=== PATIENT | female | born 1975 | race Asian ===

== ENCOUNTER → 2018-02-15 13:11 | Outpatient (CLI) | payer OTHER, SELFPAY | PROVIDERS: Family Provider Physician Assistant; PCP Physician Assistant; Visit Provider Physician Assistant | DX: K62.5 Hemorrhage of anus and rectum (principal); R53.83 Other fatigue ==

== ENCOUNTER → 2018-02-15 13:23 | Outpatient (CLI) | payer OTHER, SELFPAY ==
[2018-02-15 14:02] LABS: Hematocrit 39.1 % (36-46); Hemoglobin 13.2 g/dL (12.0-16.0)
[2018-02-15 14:40] LABS: HEMOLYSIS < 15 (0-50); Iron 104 ug/dL (37-170)
[2018-02-15 14:42] LABS: Alanine Aminotransferase 41 IU/L (9-52); Albumin 4.3 g/dL (3.5-5.0); Albumin Globulin Ratio 1.1 (1.0-2.8); Alkaline Phosphatase 81 U/L (38-126); Aspartate Aminotransferase 30 IU/L (14-36); BUN Creatinine Ratio 18.3 (6-22); Bilirubin Total 0.3 mg/dL (0.2-1.3); Blood Urea Nitrogen 11 mg/dL (7-17); Calcium 9.2 mg/dL (8.4-10.2); Carbon Dioxide 26 mmol/L (22-32); Chloride 103 mmol/L (98-107); Cholesterol 214 mg/dL (140-199); Estimated Glomerular Filt Rate > 60.0 mL/min (>60); Globulin 3.8 g/dL (1.7-4.1); Glucose 94 mg/dL (70-100); HDL Cholesterol 57 mg/dL (40-60); HEMOLYSIS < 15 (0-50); LDL Cholesterol Calculated 103 mg/dL (<100); Potassium 4.3 mmol/L (3.4-5.1); Sodium 140 mmol/L (137-145); Total Protein 8.1 g/dL (6.3-8.2); Triglycerides 270 mg/dL (35-150)
[2018-02-15 14:50] LABS: Percent Iron Saturation 30 % (15-50); Total Iron Binding Capacity 349 ug/dL (265-497); Transferrin 275 mg/dL (206-381)
[2018-02-15 15:10] LABS: Thyroid Stimulating Hormone 0.81 uIU/mL (0.47-4.68)
== END ==
PROVIDERS: PCP Physician Assistant; Visit Provider Physician Assistant
DX: Z00.00 Encounter for general adult medical examination without abnormal findings (principal); R53.83 Other fatigue; K62.5 Hemorrhage of anus and rectum
CPT/HCPCS: 36415; 80053; 80061; 82728; 83540; 83550; 84443; 85014; 85018

== ENCOUNTER → 2018-08-23 12:30 | Outpatient (CLI) | payer OTHER, SELFPAY | PROVIDERS: Family Provider Physician Assistant; PCP Physician Assistant; Visit Provider Physician Assistant | DX: R10.2 Pelvic and perineal pain (principal) | CPT/HCPCS: 87086 ==

== ENCOUNTER → 2018-09-20 13:10 | Outpatient (CLI) | payer OTHER, SELFPAY ==
--- NOTE | 2018-09-20 13:12 | DI.MG.S_ITS ---
BILATERAL DIGITAL SCREENING MAMMOGRAM 3D/2D WITH CAD: 09/20/2018 CLINICAL: Routine screening. Comparison is made to exams dated: 07/10/2016 mammogram, 07/19/2013 mammogram, and 08/30/2012 mammogram - [facility]. The tissue of both breasts is heterogeneously dense. This may lower the sensitivity of mammography. Current study was also evaluated with a Computer Aided Detection (CAD) system. No significant masses, calcifications, or other findings are seen in either breast. There has been no significant interval change. IMPRESSION: NEGATIVE There is no mammographic evidence of malignancy. A 1 year screening mammogram is recommended. This exam was interpreted at Station ID: [id number]. NOTE: For mammograms, a report in lay terms will be sent to the patient. Approximately 15% of breast malignancies will not be visualized mammographically. In the management of a palpable breast mass, a negative mammogram must not discourage biopsy of a clinically suspicious lesion. Electronically Signed By: Andrew zafar/yaritza:09/20/2018 17:32:32 letter sent: Normal Exam ACR BI-RADS Category 1: Negative [id number]
== END ==
PROVIDERS: PCP Physician Assistant; Visit Provider Physician Assistant
DX: Z12.31 Encounter for screening mammogram for malignant neoplasm of breast (principal)
CPT/HCPCS: 77063; 77067

== ENCOUNTER → 2019-12-14 10:32 | Outpatient (CLI) | payer OTHER, SELFPAY ==
[2019-12-14 13:14] LABS: Urine N gonorrhoeae NOT DETECTED
[2019-12-14 13:39] LABS: Urine Chlamydia NOT DETECTED
[2019-12-14 14:04] LABS: Pregnancy Test Urine Negative (Negative)
[2019-12-15 07:17] LABS: RPR Screen Non Reactive (Non Reactive)
[2019-12-15 15:27] LABS: HIV 1 & 2 Ab/Ag 4th Gen Combo NEGATIVE (NEGATIVE)
== END ==
PROVIDERS: PCP Nurse Practitioner Family; Referring Provider Nurse Practitioner Family; Visit Provider Nurse Practitioner Family
DX: N89.8 Other specified noninflammatory disorders of vagina (principal); Z20.2 Contact with and (suspected) exposure to infections with a predominantly sexual mode of transmission; B96.89 Other specified bacterial agents as the cause of diseases classified elsewhere; N76.0 Acute vaginitis
CPT/HCPCS: 36415; 81025; 86592; 86696; 87210; 87389; 87491; 87591

== ENCOUNTER → 2020-07-18 07:11 | Outpatient (CLI) | payer OTHER, SELFPAY ==
--- NOTE | 2020-07-18 07:15 | DI.US.S_ITS ---
PROCEDURE: US PELVIC COMPLETE INDICATIONS: Dysmenorrhea and mild dyspareunia TECHNIQUE: Real-time scanning was performed of the pelvic organs, with image documentation. Additional endovaginal scanning was necessary due to incomplete visualization of the adnexal and endometrial structures by transabdominal scanning. COMPARISON: None. FINDINGS: Transabdominal scanning: Limited scanning through the kidneys shows no hydronephrosis. No pathologic free abdominal or pelvic fluid. Endovaginal scanning: Uterus: Uterus is normal in size at 3.6 x 5.2 x 9.3 cm, anteverted. The endometrium measures 5.8 mm in combined thickness. Ovaries: Right ovary measures 2.0 x 2.1 x 2.1 cm and contains a simple cyst measuring 1.5 x 1.4 x 1.8 cm. The left ovary measures 1.9 x 1.2 x 1.4 cm. IMPRESSION: Normal pelvic ultrasound, source of crampy pelvic pain is not seen. Dictated by: John Paul Combs M.D. on 07/18/2020 at 13:42 Approved by: John Paul Combs M.D. on 07/18/2020 at 13:44
== END ==
PROVIDERS: PCP Nurse Practitioner Family; Referring Provider Family Medicine; Visit Provider Family Medicine
DX: N94.6 Dysmenorrhea, unspecified (principal); N94.10 Unspecified dyspareunia; R10.2 Pelvic and perineal pain
CPT/HCPCS: 76830; 76856

== ENCOUNTER → 2020-07-24 16:44 | Outpatient (CLI) | payer OTHER, SELFPAY ==
--- NOTE | 2020-07-24 | DI.MG.S_ITS ---
BILATERAL DIGITAL SCREENING MAMMOGRAM 3D/2D WITH CAD: 07/24/2020 CLINICAL: Routine screening. Comparison is made to exams dated: 09/20/2018 mammogram, 07/10/2016 mammogram, and 07/19/2013 mammogram - [facility]. The tissue of both breasts is heterogeneously dense. This may lower the sensitivity of mammography. Current study was also evaluated with a Computer Aided Detection (CAD) system. No significant masses, calcifications, or other findings are seen in either breast. There has been no significant interval change. IMPRESSION: NEGATIVE There is no mammographic evidence of malignancy. A 1 year screening mammogram is recommended. This exam was interpreted at Station ID: [id number]. NOTE: For mammograms, a report in lay terms will be sent to the patient. Approximately 15% of breast malignancies will not be visualized mammographically. In the management of a palpable breast mass, a negative mammogram must not discourage biopsy of a clinically suspicious lesion. Electronically Signed By: Andrew zafar/yaritza:07/25/2020 07:37:16 letter sent: Normal Exam ACR BI-RADS Category 1: Negative [id number]
--- NOTE | 2020-07-24 16:46 | DI.RAD.S_ITS ---
PROCEDURE: XR LUMBAR SPINE 2-3V INDICATIONS: Progressive lower back and pelvic pain TECHNIQUE: 2 views of the lumbar spine were acquired. COMPARISON: [facility], CT, KIDNEY/ URETER/BLADDER, 06/18/2009, 16:31. [facility], US, US PELVIC COMPLETE, 07/18/2020, 7:22. FINDINGS: Bones: 5 [id number] vertebrae are present. There is normal bony alignment. No vertebral body compression fractures. No suspicious bony lesions. Lower lumbar spine facet arthropathy is seen. The disc heights are well preserved. Soft tissues: Overlying bowel gas pattern is normal. No suspicious soft tissue calcifications. IMPRESSION: No significant lumbar plain film abnormality for age. Dictated by: Jack Evans M.D. on 07/24/2020 at 17:40 Approved by: Jack Evans M.D. on 07/24/2020 at 17:42
== END ==
PROVIDERS: PCP Nurse Practitioner Family; Referring Provider Nurse Practitioner Family; Visit Provider Nurse Practitioner Family
DX: Z12.31 Encounter for screening mammogram for malignant neoplasm of breast (principal); R10.2 Pelvic and perineal pain; M54.5 Low back pain
CPT/HCPCS: 72100; 77063; 77067

== ENCOUNTER → 2021-06-25 15:27 | Outpatient (CLI) | payer OTHER, SELFPAY ==
--- NOTE | 2021-06-25 15:40 | DI.RAD.S_ITS ---
PROCEDURE: XR WRIST LT MIN 3V INDICATIONS: pain TECHNIQUE: 4 views of the wrist were acquired. COMPARISON: None. FINDINGS: Bones: No fractures or dislocations. No suspicious bony lesions. Scaphoid view: Intact Soft tissues: No suspicious soft tissue calcifications. IMPRESSION: No acute abnormality Dictated by: Vinh Winters M.D. on 06/25/2021 at 16:19 Approved by: Vinh Winters M.D. on 06/25/2021 at 16:21
== END ==
PROVIDERS: PCP Nurse Practitioner Family; Referring Provider Nurse Practitioner Family; Visit Provider Nurse Practitioner Family
DX: M25.532 Pain in left wrist (principal)
CPT/HCPCS: 73110

== ENCOUNTER 2021-08-12 14:15 | Outpatient (RCR) | payer OTHER, SELFPAY ==
--- NOTE | 2021-07-18 17:38 | PT.OIE ---
Current Diagnoses Pain in left wrist (07/18/21) Stiffness of left hand, not elsewhere classified (07/18/21) Muscle weakness (generalized) (07/18/21) Other enthesopathies, not elsewhere classified (07/18/21) Past Medical History (Last Reviewed 07/24/20 @ 16:44 by Alden Dailey DO) Dysmenorrhea Generalized headaches (Unknown) Hemorrhoids Mixed hyperlipidemia Pain in pelvis Vaginal lesion Past Surgical History (Last Updated 02/22/18 @ 14:09 by Barbara Payne LPN) Status post breast biopsy (2012) Status post delivery (1999) Visit Care Team Role Provider Type KEAGAN Kennedy Family Provider Advanced Refining Supervisor Primary Care Provider Specialty: [facility] Practice Address: [address] [place] [address], [id number] Email: [email or web address] Alden Dailey DO Attending Provider Physician Referring Provider Specialty: [facility] Address: [address] [place] [address], [id number] Email: [email or web address] Physical Therapy Initial Evaluation PT-OP-A Visit Information Start: 07/18/21 10:34 Freq: Status: Active Protocol: Document 07/18/21 10:36 LRN (Rec: 07/18/21 12:30 LRN [id number]) Out-Patient Physical Therapy Visit Information Visit Information Visit Type Initial Evaluation Visit Start Time 10:36 Visit Stop Time 11:21 Total Visit Minutes 44 Visit Number 1 Evaluation Information Evaluation Date 07/18/21 Precautions Precautions None PT-OP-B Current Condition Start: 07/18/21 10:34 Freq: Status: Active Protocol: Document 07/18/21 10:36 LRN (Rec: 07/18/21 12:30 LRN [id number]) Current Condition History of Current Condition Onset Date 2 months ago. Current Complaints Pain at distal end of radius of L wrist. History of Current Condition Lifting 10-25# weight repetitive lifting basket caused onset of pain. Prior Treatments and Tests X-ray (3 weeks ago): was told no bone broken and was given Naproxen. Given wrist splint by referring provider. 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 After spending 4 months on the boat now has L wrist pain. September is the next time the boat goes out. Pt is R handed. Treatment Goals Patient/Caregiver Goals Pt goal is to return to prior level of function. 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 Current Functional Impairments (Reported) Functional Limitations- ADL's Difficulty carrying and lifting garbage bags (or objects 10-25#), chopping onions, putting shirts or pants on or off. Personal Factors Other Personal Factors That May Effect Lives alone. Therapy/Recovery Next job on boat is Sep 16, 2021. PT-OP-C Subjective Start: 07/18/21 10:34 Freq: Status: Active Protocol: Document 07/18/21 10:36 LRN (Rec: 07/18/21 12:30 LRN [id number]) Patient Questionnaires Quick Dash- Upper Extremity Quick Dash UE Score 40.99 Quick Dash UE Impairment 40 to 59% Impaired (Score 40- 59) OP-PT Pain Assessment Pain Assessment Grid Paper Pain Assessment Grid Completed Yes Location L wrist Pain Location Details L lateral wrist at distal radius Intensity 6 Scale Used Numeric (0 - 10) Description Burning,Pressure Description- Other Holding phone 15', sleeping on L hand (palm down) Frequency Constant Pain Aggravating Factors Lifting Other Pain Aggravating Factors Holding phone, sleeping on hand. Pain Alleviating Factors Cold,Medication,Massage Other Pain Alleviating Factors Naproxen. PT-OP-H Neuro Start: 07/18/21 10:34 Freq: Status: Active Protocol: Document 07/18/21 10:36 LRN (Rec: 07/18/21 12:30 LRN [id number]) Sensation Evaluation Gross Sensation Gross Sensation Left UE Impaired Sensation Description Coldness PT-OP-K Range of Motion Start: 07/18/21 10:34 Freq: Status: Active Protocol: Document 07/18/21 10:36 LRN (Rec: 07/18/21 12:30 LRN [id number]) Elbow/Forearm Range of Motion Elbow/Forearm Right Active Elbow/Forearm ROM WFL Yes ROM Testing Position Sitting Left Active Elbow/Forearm ROM WFL Yes ROM Testing Position Sitting Wrist Goniometric Range of Motion Wrist Right Wrist ROM WFL Yes Flexion Active (degrees) 78 Extension Active (degrees) 58 Ulnar Deviation Active (degrees) 32 Radial Deviation Active (degrees) 20 Left Wrist ROM WFL No Flexion Active (degrees) 78 Extension Active (degrees) 40 Ulnar Deviation Active (degrees) 10 Radial Deviation Active (degrees) 22 PT-OP-L Special Tests Start: 07/18/21 10:34 Freq: Status: Active Protocol: Document 07/18/21 10:36 LRN (Rec: 07/18/21 12:30 LRN [id number]) Special Tests Cervical Spine Special Tests Foraminal Compression Test Results negative Comments No UE radiculopathy Wrist/Hand Special Tests Lance's Test Results + L wrist Comments Possible DeQuervin's Syndrome. PT-OP-M Strength Start: 07/18/21 10:34 Freq: Status: Active Protocol: Document 07/18/21 10:36 LRN (Rec: 07/18/21 12:30 LRN [id number]) Elbow/Forearm Strength Elbow and Forearm Manual Muscle Testing Right Comments Generally 5/5 Left Flexion (C6) 5 Normal Extension (C7) 4+ Good+ Pronation 4+ Good+ Supination 5 Normal Comments L lateral wrist pain with resisted elbow extension, pronation Wrist Strength Wrist Manual Muscle Testing Right Flexion (C7) 4+ Good+ Comments Generally 5/5, except as noted above. Left Flexion (C7) 3+ Fair+ Extension (C6) 5 Normal Ulnar Deviation 2 Poor Radial Deviation 3 Fair Comments Strength limited by pain Finger/Thumb Strength Finger Manual Muscle Testing Left Thumb Flexion (fingers C8) 5 Normal Extension (thumb C8) 3+ Fair+ Adduction 5 Normal Abduction (fingers T1) 5 Normal Comments Opposition is 5/5 Limited in not able to touch base of little finger. PT-OP-Q Treatments Start: 07/18/21 10:34 Freq: Status: Active Protocol: Document 07/18/21 10:36 LRN (Rec: 07/18/21 12:30 LRN [id number]) Self-Care/Home Management Treatment Education Patient Education Pain Management Other Education Pt educated in reults of evaluation. Discussed goals and plan of care, pt agreeable . Activities Self-Care/Home Management Activities I/S pt to use wrist splint when doing activities that cause pain. Recommended trying to wear at nighttime to reduce onset of pain at night . I/S pt in use of ice for edema/pain management with precautions given for time, and proper application of cold pack to area. PT-OP-T Assessment and Plan Start: 07/18/21 10:34 Freq: Status: Active Protocol: Document 07/18/21 10:36 LRN (Rec: 07/18/21 12:30 LRN [id number]) Physical Therapy Assessment Rehab Potential Rehabilitation Potential Good Evaluation Complexity Number of Personal Factors/Comorbidities 1-2 Number of Body Systems Impaired 4 or More Clinical Presentation at Evaluation Evolving Impairments Impairments Activity Tolerance,Edema,Pain, ROM,Soft Tissue Mobility, Strength Goals Three Impairment Constant L wrist pain rated 6/ 10 Short Term Goal (STG) Decrease L wrist pain to no more than 3/10 in 4 weeks. With light objects, pt will be able to carry amd lift without pain and chop onions without pain. STG Duration 08/17/21 Architecture Professor Goal (LTG) No wrist pain with daily activities and no pain with use of wrist splint for activities of lifting, carrying groceries or garbage bags up to 25# and put on her shirts and pants without pain. LTG Duration 09/16/21 Two Impairment Decreased L wrist mobility Short Term Goal (STG) Pt will be independent on a self care L wrist mobility exercise program. STG Duration 07/25/21 Architecture Professor Goal (LTG) Pt will demonstrate normal L wrist AROM without onset of pain. LTG Duration 09/16/21 One Impairment Lacks appropriate self care HEP Short Term Goal (STG) Pt will demonstrate good knowledge of self care edema management and use of L wrist splint. STG Duration 08/17/21 Architecture Professor Goal (LTG) Pt will be independent in a self care HEP. LTG Duration 09/24/21 Assessment Summary Assessment Pt presents with tenderness of the L wrist at the distal radial end. X-rays show no fractures of the wrist. The pt has + Lance test indicating possible DeQuervin' s syndrome. She is negative with [facility] grind Test indicating no arthritic involvement. She does have pain at the anatomic snuffbox and she does have tenderness with posterior-anterior and anterior-posterior glide of Scaphoid, indicating dysfunction (possible fracture ). The pt has generalized swelling at the distal radial end of the wrist and between the radius and ulna distally. The pt would benefit from further imaging of the L wrist small bones. The pt will benefit from skilled physical therapy for continued further assessment and ROM, pain/edema reduction and pt education in self care of the wrist, in order to achieve the above stated goals. Physical Therapy Plan Frequency and Duration Frequency of Treatment 2x/Week Plan of Care Start Date 07/18/21 Plan of Care End Date 09/16/21 Therapeutic Interventions Therapeutic Interventions Home Exercise Program,Joint Mobilizations,Manual Therapy, Patient/Caregiver Education, Self-Care/Home Management,Soft Tissue Mobilization,Taping, Therapeutic Exercises Modalities Cold Pack/Ice Massage,Hot Packs,Iontophoresis,Paraffin Bath,Ultrasound Other Therapeutic Interventions Iontophoresis: 4mg/mL Dexamethasone with Sodium Phosphate. Contrast baths Laser Other Referrals/Consults Referrals/Consults Recommended If pt does not improve, would MRI of small bones for possible Scaphoid fracture. Next Visit Focus/Plan Next Note Type Treatment Note Next Visit Plan Assess response to use of wrist splint and ice. Issue I /S for edema management ( include cp, contrast baths). Assess Sup/Pron AROM, check sup/justina coordination, Scaphoid assessment(Gottlieb's Test, Scaphoid Thrust Test) assessment of Lynne's Tubercle. STM of L wrist extensors> flexors, Manual: Wrist distraction, PROM L wrist, thumb. K-tape for edema, support HEP: L wrist PROM for (ext, UD), thumb opposition to little finger, When appropriate, wrist/thumb strengthening Modalities: US with small head for snuff box tendons and thumb extensors, iontophoresis , laser, paraffin dip, hot/ cold.
--- NOTE | 2021-07-18 17:38 | PT.OPPOC ---
Physical, Occupational & Speech Therapy At [facility] Current Diagnoses Pain in left wrist (07/18/21) Stiffness of left hand, not elsewhere classified (07/18/21) Muscle weakness (generalized) (07/18/21) Other enthesopathies, not elsewhere classified (07/18/21) Visit Care Team Role Provider Type KEAGAN Kennedy Family Provider Advanced Repairer Wood Furniture Primary Care Provider Specialty: Family Practice Address: [address] [place] [address], [id number] Email: [email or web address] Alden Dailey DO Attending Provider Physician Referring Provider Specialty: [facility] Address: [address] [place] [address], [address] Email: [email or web address] Plan Of Care PT-OP-T Assessment and Plan Start: 07/18/21 10:34 Freq: Status: Active Protocol: Document 07/18/21 10:36 LRN (Rec: 07/18/21 12:30 LRN [id number]) Physical Therapy Assessment Rehab Potential Rehabilitation Potential Good Evaluation Complexity Number of Personal Factors/Comorbidities 1-2 Number of Body Systems Impaired 4 or More Clinical Presentation at Evaluation Evolving Impairments Impairments Activity Tolerance,Edema,Pain, ROM,Soft Tissue Mobility, Strength Goals Three Impairment Constant L wrist pain rated 6/ 10 Short Term Goal (STG) Decrease L wrist pain to no more than 3/10 in 4 weeks. With light objects, pt will be able to carry amd lift without pain and chop onions without pain. STG Duration 08/17/21 Correction Goal (LTG) No wrist pain with daily activities and no pain with use of wrist splint for activities of lifting, carrying groceries or garbage bags up to 25# and put on her shirts and pants without pain. LTG Duration 09/16/21 Two Impairment Decreased L wrist mobility Short Term Goal (STG) Pt will be independent on a self care L wrist mobility exercise program. STG Duration 07/25/21 Correction Goal (LTG) Pt will demonstrate normal L wrist AROM without onset of pain. LTG Duration 09/16/21 One Impairment Lacks appropriate self care HEP Short Term Goal (STG) Pt will demonstrate good knowledge of self care edema management and use of L wrist splint. STG Duration 08/17/21 Chief Scientist Goal (LTG) Pt will be independent in a self care HEP. LTG Duration 09/24/21 Assessment Summary Assessment Pt presents with tenderness of the L wrist at the distal radial end. X-rays show no fractures of the wrist. The pt has + Lance test indicating possible DeQuervin' s syndrome. She is negative with [facility] grind Test indicating no arthritic involvement. She does have pain at the anatomic snuffbox and she does have tenderness with posterior-anterior and anterior-posterior glide of Scaphoid, indicating dysfunction (possible fracture ). The pt has generalized swelling at the distal radial end of the wrist and between the radius and ulna distally. The pt would benefit from further imaging of the L wrist small bones. The pt will benefit from skilled physical therapy for continued further assessment and ROM, pain/edema reduction and pt education in self care of the wrist, in order to achieve the above stated goals. Physical Therapy Plan Frequency and Duration Frequency of Treatment 2x/Week Plan of Care Start Date 07/18/21 Plan of Care End Date 09/16/21 Therapeutic Interventions Therapeutic Interventions Home Exercise Program,Joint Mobilizations,Manual Therapy, Patient/Caregiver Education, Self-Care/Home Management,Soft Tissue Mobilization,Taping, Therapeutic Exercises Modalities Cold Pack/Ice Massage,Hot Packs,Iontophoresis,Paraffin Bath,Ultrasound Other Therapeutic Interventions Iontophoresis: 4mg/mL Dexamethasone with Sodium Phosphate. Contrast baths Laser Other Referrals/Consults Referrals/Consults Recommended If pt does not improve, would MRI of small bones for possible Scaphoid fracture. Next Visit Focus/Plan Next Note Type Treatment Note Next Visit Plan Assess response to use of wrist splint and ice. Issue I /S for edema management ( include cp, contrast baths). Assess Sup/Pron AROM, check sup/justina coordination, Scaphoid assessment(Gottlieb's Test, Scaphoid Thrust Test) assessment of Lynne's Tubercle. STM of L wrist extensors> flexors, Manual: Wrist distraction, PROM L wrist, thumb. K-tape for edema, support HEP: L wrist PROM for (ext, UD), thumb opposition to little finger, When appropriate, wrist/thumb strengthening Modalities: US with small head for snuff box tendons and thumb extensors, iontophoresis , laser, paraffin dip, hot/ cold. Plan of Care Dates Plan of Care Start Date 07/18/21 Plan of Care End Date 09/16/21 Electronically Signed by: Anitha Vasquez, PT 07/18/21 [id number] Please Sign and Return: I have reviewed this Plan of Care and certify that the skilled therapy services above are required to meet the patient?s needs. Physician Signature Date Printed Name and Credentials Clinical Instructor Signature Printed Name and Credentials
--- NOTE | 2021-07-23 14:45 | PT.OTN ---
Current Diagnoses Pain in left wrist (07/23/21) Stiffness of left hand, not elsewhere classified (07/23/21) Muscle weakness (generalized) (07/23/21) Other enthesopathies, not elsewhere classified (07/23/21) Physical Therapy Treatment Note PT-OP-A Visit Information Start: 07/18/21 10:34 Freq: Status: Active Protocol: Document 07/23/21 13:35 LRN (Rec: 07/23/21 14:44 LRN [id number]) Out-Patient Physical Therapy Visit Information Visit Information Visit Type Treatment Note Visit Start Time 13:35 Visit Stop Time 14:20 Total Visit Minutes 45 Visit Number 2 Evaluation Information Evaluation Date 07/18/21 Precautions Precautions None PT-OP-B Current Condition Start: 07/18/21 10:34 Freq: Status: Active Protocol: Document 07/18/21 10:36 LRN (Rec: 07/18/21 12:30 LRN [id number]) Current Condition History of Current Condition Onset Date 2 months ago. Current Complaints Pain at distal end of radius of L wrist. History of Current Condition Lifting 10-25# weight repetitive lifting basket caused onset of pain. Prior Treatments and Tests X-ray (3 weeks ago): was told no bone broken and was given Naproxen. Given wrist splint by referring provider. 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 After spending 4 months on the boat now has L wrist pain. September is the next time the boat goes out. Pt is R handed. Treatment Goals Patient/Caregiver Goals Pt goal is to return to prior level of function. 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 Current Functional Impairments (Reported) Functional Limitations- ADL's Difficulty carrying and lifting garbage bags (or objects 10-25#), chopping onions, putting shirts or pants on or off. Personal Factors Other Personal Factors That May Effect Lives alone. Therapy/Recovery Next job on boat is Sep 16, 2021. PT-OP-C Subjective Start: 07/18/21 10:34 Freq: Status: Active Protocol: Document 07/23/21 13:35 LRN (Rec: 07/23/21 14:44 LRN [id number]) OP-PT Subjective Patient Comments Patient Comments Didn't sleep well because the L wrist hurt so much. Stretches helped to decreased the pain. Pain increase with holding phone w/L hand and driving. PT-OP-H Neuro Start: 07/18/21 10:34 Freq: Status: Active Protocol: Document 07/18/21 10:36 LRN (Rec: 07/18/21 12:30 LRN [id number]) Sensation Evaluation Gross Sensation Gross Sensation Left UE Impaired Sensation Description Coldness PT-OP-J Posture/Palpation/Skin Start: 07/18/21 10:34 Freq: Status: Active Protocol: Document 07/23/21 13:35 LRN (Rec: 07/23/21 14:44 LRN [id number]) Palpation Assessment Location L Small bones Palpation Location Small bones of wrist Palpation Details No tenderness with PA or AP glides. PT-OP-K Range of Motion Start: 07/18/21 10:34 Freq: Status: Active Protocol: Document 07/18/21 10:36 LRN (Rec: 07/18/21 12:30 LRN [id number]) Elbow/Forearm Range of Motion Elbow/Forearm Right Active Elbow/Forearm ROM WFL Yes ROM Testing Position Sitting Left Active Elbow/Forearm ROM WFL Yes ROM Testing Position Sitting Wrist Goniometric Range of Motion Wrist Right Wrist ROM WFL Yes Flexion Active (degrees) 78 Extension Active (degrees) 58 Ulnar Deviation Active (degrees) 32 Radial Deviation Active (degrees) 20 Left Wrist ROM WFL No Flexion Active (degrees) 78 Extension Active (degrees) 40 Ulnar Deviation Active (degrees) 10 Radial Deviation Active (degrees) 22 PT-OP-L Special Tests Start: 07/18/21 10:34 Freq: Status: Active Protocol: Document 07/23/21 13:35 LRN (Rec: 07/23/21 14:44 LRN [id number]) Special Tests Wrist/Hand Special Tests Scaphoid Thrust Test Test Results L wrist: Negative Comments No pain; therefore neg for scaphoid fracture. Gottlieb's Test Test Results L wrist: Negative. Comments No pain in wrist with testing; therefore negative for scaphoid involvement. PT-OP-M Strength Start: 07/18/21 10:34 Freq: Status: Active Protocol: Document 07/18/21 10:36 LRN (Rec: 07/18/21 12:30 LRN [id number]) Elbow/Forearm Strength Elbow and Forearm Manual Muscle Testing Right Comments Generally 5/5 Left Flexion (C6) 5 Normal Extension (C7) 4+ Good+ Pronation 4+ Good+ Supination 5 Normal Comments L lateral wrist pain with resisted elbow extension, pronation Wrist Strength Wrist Manual Muscle Testing Right Flexion (C7) 4+ Good+ Comments Generally 5/5, except as noted above. Left Flexion (C7) 3+ Fair+ Extension (C6) 5 Normal Ulnar Deviation 2 Poor Radial Deviation 3 Fair Comments Strength limited by pain Finger/Thumb Strength Finger Manual Muscle Testing Left Thumb Flexion (fingers C8) 5 Normal Extension (thumb C8) 3+ Fair+ Adduction 5 Normal Abduction (fingers T1) 5 Normal Comments Opposition is 5/5 Limited in not able to touch base of little finger. PT-OP-Q Treatments Start: 07/18/21 10:34 Freq: Status: Active Protocol: Document 07/23/21 13:35 LRN (Rec: 07/23/21 14:44 LRN [id number]) Therapeutic Exercises Supine Exercises L wrist UD Supine Exercise Name L wrist stretch into UD Side left Reps/Minutes 4' Thumb ext/wrist RD Supine Exercise Name Active stretch to thumb extensor/wrist RD Side left Reps/Minutes 8' L wrist flexor stretch Supine Exercise Name Passive stretch to wrist flexors Side left Reps/Minutes 4' Manual Therapy Treatment Soft Tissue Mobilization L wrist Flexors Body Location L wrist flexors Mobilization Type Cross-Friction,Strumming Intensity/Depth Moderate Body Position Supine Joint Mobilizations Scaphoid Joint PA, AP, Gottlieb's Test & Scaphoid Thrust Test, see special tests for results Body Position Supine Reps/Duration 3' Self-Care/Home Management Treatment Education Patient Education Pain Management Other Education Discussed possible transfer of therapy to a location closer to her living situation ( [place]). Pt agreeable to check into PT location in [place] due to L wrist pain with driving. Activities Self-Care/Home Management Activities Issued & reviewed self care edema management handouts for RICE and contrast bath self care treatments. I/S pt in stretching of L wrist flexors and thumb extensors. Pt I/S to discontinue holding her phone with her left hand due to increased pain with phone use. PT-OP-T Assessment and Plan Start: 07/18/21 10:34 Freq: Status: Active Protocol: Document 07/23/21 13:35 LRN (Rec: 07/23/21 14:44 LRN [id number]) Physical Therapy Assessment Goals Three Impairment Constant L wrist pain rated 6/ 10 Short Term Goal (STG) Decrease L wrist pain to no more than 3/10 in 4 weeks. With light objects, pt will be able to carry amd lift without pain and chop onions without pain. STG Duration 08/17/21 Attic Fans Mechanic Goal (LTG) No wrist pain with daily activities and no pain with use of wrist splint for activities of lifting, carrying groceries or garbage bags up to 25# and put on her shirts and pants without pain. LTG Duration 09/16/21 Two Impairment Decreased L wrist mobility Short Term Goal (STG) Pt will be independent on a self care L wrist mobility exercise program. STG Duration 07/25/21 Senior Care Goal (LTG) Pt will demonstrate normal L wrist AROM without onset of pain. LTG Duration 09/16/21 One Impairment Lacks appropriate self care HEP Short Term Goal (STG) Pt will demonstrate good knowledge of self care edema management and use of L wrist splint. STG Duration 08/17/21 Senior Care Goal (LTG) Pt will be independent in a self care HEP. LTG Duration 09/24/21 Assessment Summary Assessment With use of Ice and L wrist splint at night, the pt had some reduction in her radial sided L wrist pain. Pt appeared to have a good understanding of methods for edema management after education (contrast baths and RICE treatment). She is able to stretch her L thumb extensor with active opposition to base of little finger; therefore held stretching in [place]in test position. Gottlieb's Test & Scaphoid Thrust Test was negative with no complaints of pain; therefore negative for Scaphoid fracture. Physical Therapy Plan Frequency and Duration Frequency of Treatment 2x/Week Plan of Care Start Date 07/18/21 Plan of Care End Date 09/16/21 Next Visit Focus/Plan Next Note Type Treatment Note Next Visit Plan Assess response to US with small head to snuff box tendons and thumb extensors, Assess Sup/Pron AROM, check sup/justina coordination, assessment of Lynne's Tubercle. STM of L wrist extensors> flexors, Manual: Wrist distraction, PROM L wrist, thumb. K-tape for edema, support HEP: L wrist PROM for (ext, UD), thumb opposition to little finger, When appropriate, wrist/thumb strengthening iontophoresis, laser, paraffin dip, hot/cold.
--- NOTE | 2021-07-26 15:55 | PT.OTN ---
Current Diagnoses Pain in left wrist (07/26/21) Stiffness of left hand, not elsewhere classified (07/26/21) Muscle weakness (generalized) (07/26/21) Other enthesopathies, not elsewhere classified (07/26/21) Physical Therapy Treatment Note PT-OP-A Visit Information Start: 07/18/21 10:34 Freq: Status: Active Protocol: Document 07/26/21 13:42 LRN (Rec: 07/26/21 15:50 LRN [id number]) Out-Patient Physical Therapy Visit Information Visit Information Visit Type Treatment Note Visit Start Time 13:42 Visit Stop Time 14:22 Total Visit Minutes 40 Visit Number 3 Evaluation Information Evaluation Date 07/18/21 Precautions Precautions None PT-OP-B Current Condition Start: 07/18/21 10:34 Freq: Status: Active Protocol: Document 07/18/21 10:36 LRN (Rec: 07/18/21 12:30 LRN [id number]) Current Condition History of Current Condition Onset Date 2 months ago. Current Complaints Pain at distal end of radius of L wrist. History of Current Condition Lifting 10-25# weight repetitive lifting basket caused onset of pain. Prior Treatments and Tests X-ray (3 weeks ago): was told no bone broken and was given Naproxen. Given wrist splint by referring provider. 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 September is the next time the boat goes out. Pt is R handed. Treatment Goals Patient/Caregiver Goals Pt goal is to return to prior level of function. 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 Current Functional Impairments (Reported) Functional Limitations- ADL's Difficulty carrying and lifting garbage bags (or objects 10-25#), chopping onions, putting shirts or pants on or off. Personal Factors Other Personal Factors That May Effect Lives alone. Therapy/Recovery Next job on boat is Sep 16, 2021. PT-OP-C Subjective Start: 07/18/21 10:34 Freq: Status: Active Protocol: Document 07/26/21 13:42 LRN (Rec: 07/26/21 15:50 LRN [id number]) OP-PT Subjective Patient Comments Patient Comments Did the hot/cold and it was a little helpful for a couple hours. US provided some pain relief in the L lateral wrist, until next day. PT-OP-H Neuro Start: 07/18/21 10:34 Freq: Status: Active Protocol: Document 07/18/21 10:36 LRN (Rec: 07/18/21 12:30 LRN [id number]) Sensation Evaluation Gross Sensation Gross Sensation Left UE Impaired Sensation Description Coldness PT-OP-J Posture/Palpation/Skin Start: 07/18/21 10:34 Freq: Status: Active Protocol: Document 07/23/21 13:35 LRN (Rec: 07/23/21 14:44 LRN [id number]) Palpation Assessment Location L Small bones Palpation Location Small bones of wrist Palpation Details No tenderness with PA or AP glides. PT-OP-K Range of Motion Start: 07/18/21 10:34 Freq: Status: Active Protocol: Document 07/18/21 10:36 LRN (Rec: 07/18/21 12:30 LRN [id number]) Elbow/Forearm Range of Motion Elbow/Forearm Right Active Elbow/Forearm ROM WFL Yes ROM Testing Position Sitting Left Active Elbow/Forearm ROM WFL Yes ROM Testing Position Sitting Wrist Goniometric Range of Motion Wrist Right Wrist ROM WFL Yes Flexion Active (degrees) 78 Extension Active (degrees) 58 Ulnar Deviation Active (degrees) 32 Radial Deviation Active (degrees) 20 Left Wrist ROM WFL No Flexion Active (degrees) 78 Extension Active (degrees) 40 Ulnar Deviation Active (degrees) 10 Radial Deviation Active (degrees) 22 PT-OP-L Special Tests Start: 07/18/21 10:34 Freq: Status: Active Protocol: Document 07/23/21 13:35 LRN (Rec: 07/23/21 14:44 LRN [id number]) Special Tests Wrist/Hand Special Tests Scaphoid Thrust Test Test Results L wrist: Negative Comments No pain; therefore neg for scaphoid fracture. Gottlieb's Test Test Results L wrist: Negative. Comments No pain in wrist with testing; therefore negative for scaphoid involvement. PT-OP-M Strength Start: 07/18/21 10:34 Freq: Status: Active Protocol: Document 07/18/21 10:36 LRN (Rec: 07/18/21 12:30 LRN [id number]) Elbow/Forearm Strength Elbow and Forearm Manual Muscle Testing Right Comments Generally 5/5 Left Flexion (C6) 5 Normal Extension (C7) 4+ Good+ Pronation 4+ Good+ Supination 5 Normal Comments L lateral wrist pain with resisted elbow extension, pronation Wrist Strength Wrist Manual Muscle Testing Right Flexion (C7) 4+ Good+ Comments Generally 5/5, except as noted above. Left Flexion (C7) 3+ Fair+ Extension (C6) 5 Normal Ulnar Deviation 2 Poor Radial Deviation 3 Fair Comments Strength limited by pain Finger/Thumb Strength Finger Manual Muscle Testing Left Thumb Flexion (fingers C8) 5 Normal Extension (thumb C8) 3+ Fair+ Adduction 5 Normal Abduction (fingers T1) 5 Normal Comments Opposition is 5/5 Limited in not able to touch base of little finger. PT-OP-Q Treatments Start: 07/18/21 10:34 Freq: Status: Active Protocol: Document 07/26/21 13:42 LRN (Rec: 07/26/21 15:50 LRN [id number]) Therapeutic Exercises Sitting Exercises L wrist ext Sitting Exercise Name Stretch into wrist ext Side left Reps/Minutes 3' Thumb opposition stretch Side left Equipment Used Reps/Minutes 3' Thumb flex stretch Side left Equipment Used MH Reps/Minutes 3' L wrist supination Sitting Exercise Name L wrist sup stretch & active stretch Side left Equipment Used Reps/Minutes 8' Comments cuing for gentle stretch, and movement of fingers in sup stretch position. Manual Therapy Treatment Soft Tissue Mobilization L wrist AB/extensor Body Location L thumb AB/ext muscles Mobilization Type Strumming Intensity/Depth Moderate Body Position Sitting PT-OP-R Modalities Start: 07/26/21 12:36 Freq: Status: Active Protocol: Document 07/26/21 13:42 LRN (Rec: 07/26/21 15:54 LRN [id number]) Hot Pack/Cold Pack Treatment Cold Pack Location L radial side of wrist Patient Position Sitting Treatment Duration (minutes) 1 Patient Tolerance Poor Comments Discontinued due to increased pain. Ultrasound Therapy Treatment L thumb AB tendon Treatment Duration (minutes) 2 Patient Position Sitting Coupling Medium Ultrasound Gel Applicator Size (cm2) 2 Frequency Setting (mHz) 3 Mode Setting Pulsed Duty Cycle 50% Intensity Setting (w/cm2) 0.6 Comments Started intensity at 1.0 and decreased to 0.6. Pt had complaints of pain and heat with use of US; therefore discontinued. PT-OP-T Assessment and Plan Start: 07/18/21 10:34 Freq: Status: Active Protocol: Document 07/26/21 13:42 LRN (Rec: 07/26/21 15:50 LRN [id number]) Physical Therapy Assessment Goals Three Impairment Constant L wrist pain rated 6/ 10 Short Term Goal (STG) Decrease L wrist pain to no more than 3/10 in 4 weeks. With light objects, pt will be able to carry amd lift without pain and chop onions without pain. STG Duration 08/17/21 Snf Goal (LTG) No wrist pain with daily activities and no pain with use of wrist splint for activities of lifting, carrying groceries or garbage bags up to 25# and put on her shirts and pants without pain. LTG Duration 09/16/21 Two Impairment Decreased L wrist mobility Short Term Goal (STG) Pt will be independent on a self care L wrist mobility exercise program. STG Duration 07/25/21 Snf Goal (LTG) Pt will demonstrate normal L wrist AROM without onset of pain. LTG Duration 09/16/21 One Impairment Lacks appropriate self care HEP Short Term Goal (STG) Pt will demonstrate good knowledge of self care edema management and use of L wrist splint. STG Duration 08/17/21 Salt Refiner Goal (LTG) Pt will be independent in a self care HEP. LTG Duration 09/24/21 Assessment Summary Assessment Active supine L wrist is painful at lateral wrist ( snuff box). No pain at Lynne 's Tubercle. Pt presents with + Lance. L thumb AB pain > extension. Poor tolerance to ice & c/o heat with US; therefore discontinued US. Physical Therapy Plan Frequency and Duration Frequency of Treatment 2x/Week Plan of Care Start Date 07/18/21 Plan of Care End Date 09/16/21 Next Visit Focus/Plan Next Note Type Treatment Note Next Visit Plan STM of L wrist extensors> flexors, Manual: Wrist distraction, PROM L wrist, thumb. K-tape for edema, support HEP: L wrist PROM for (ext, UD), thumb opposition to little finger, When appropriate, wrist/thumb strengthening iontophoresis, laser, paraffin dip, hot/cold.
--- NOTE | 2021-08-08 15:33 | PT.OTN ---
Current Diagnoses Pain in left wrist (08/08/21) Stiffness of left hand, not elsewhere classified (08/08/21) Muscle weakness (generalized) (08/08/21) Other enthesopathies, not elsewhere classified (08/08/21) Physical Therapy Treatment Note PT-OP-A Visit Information Start: 07/18/21 10:34 Freq: Status: Active Protocol: Document 08/08/21 14:29 LRN (Rec: 08/08/21 15:31 LRN [id number]) Out-Patient Physical Therapy Visit Information Visit Information Visit Type Treatment Note Visit Start Time 14:29 Visit Stop Time 15:10 Total Visit Minutes 41 Visit Number 4 Evaluation Information Evaluation Date 07/18/21 Precautions Precautions None PT-OP-B Current Condition Start: 07/18/21 10:34 Freq: Status: Active Protocol: Document 07/18/21 10:36 LRN (Rec: 07/18/21 12:30 LRN [id number]) Current Condition History of Current Condition Onset Date 2 months ago. Current Complaints Pain at distal end of radius of L wrist. History of Current Condition Lifting 10-25# weight repetitive lifting basket caused onset of pain. Prior Treatments and Tests X-ray (3 weeks ago): was told no bone broken and was given Naproxen. Given wrist splint by referring provider. 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 After spending 4 months on the boat now has L wrist pain. September is the next time the boat goes out. Pt is R handed. Treatment Goals Patient/Caregiver Goals Pt goal is to return to prior level of function. 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 Current Functional Impairments (Reported) Functional Limitations- ADL's Difficulty carrying and lifting garbage bags (or objects 10-25#), chopping onions, putting shirts or pants on or off. Personal Factors Other Personal Factors That May Effect Lives alone. Therapy/Recovery Next job on boat is Sep 16, 2021. PT-OP-C Subjective Start: 07/18/21 10:34 Freq: Status: Active Protocol: Document 08/08/21 14:29 LRN (Rec: 08/08/21 15:31 LRN [id number]) OP-PT Subjective Patient Comments Patient Comments Sometimes her L wrist is normal. Can scratch her back without pain. Can lift a little luggage before it starts to hurt. PT-OP-H Neuro Start: 07/18/21 10:34 Freq: Status: Active Protocol: Document 07/18/21 10:36 LRN (Rec: 07/18/21 12:30 LRN [id number]) Sensation Evaluation Gross Sensation Gross Sensation Left UE Impaired Sensation Description Coldness PT-OP-J Posture/Palpation/Skin Start: 07/18/21 10:34 Freq: Status: Active Protocol: Document 07/23/21 13:35 LRN (Rec: 07/23/21 14:44 LRN [id number]) Palpation Assessment Location L Small bones Palpation Location Small bones of wrist Palpation Details No tenderness with PA or AP glides. PT-OP-K Range of Motion Start: 07/18/21 10:34 Freq: Status: Active Protocol: Document 07/18/21 10:36 LRN (Rec: 07/18/21 12:30 LRN [id number]) Elbow/Forearm Range of Motion Elbow/Forearm Right Active Elbow/Forearm ROM WFL Yes ROM Testing Position Sitting Left Active Elbow/Forearm ROM WFL Yes ROM Testing Position Sitting Wrist Goniometric Range of Motion Wrist Right Wrist ROM WFL Yes Flexion Active (degrees) 78 Extension Active (degrees) 58 Ulnar Deviation Active (degrees) 32 Radial Deviation Active (degrees) 20 Left Wrist ROM WFL No Flexion Active (degrees) 78 Extension Active (degrees) 40 Ulnar Deviation Active (degrees) 10 Radial Deviation Active (degrees) 22 PT-OP-L Special Tests Start: 07/18/21 10:34 Freq: Status: Active Protocol: Document 07/23/21 13:35 LRN (Rec: 07/23/21 14:44 LRN [id number]) Special Tests Wrist/Hand Special Tests Scaphoid Thrust Test Test Results L wrist: Negative Comments No pain; therefore neg for scaphoid fracture. Gottlieb's Test Test Results L wrist: Negative. Comments No pain in wrist with testing; therefore negative for scaphoid involvement. PT-OP-M Strength Start: 07/18/21 10:34 Freq: Status: Active Protocol: Document 07/18/21 10:36 LRN (Rec: 07/18/21 12:30 LRN [id number]) Elbow/Forearm Strength Elbow and Forearm Manual Muscle Testing Right Comments Generally 5/5 Left Flexion (C6) 5 Normal Extension (C7) 4+ Good+ Pronation 4+ Good+ Supination 5 Normal Comments L lateral wrist pain with resisted elbow extension, pronation Wrist Strength Wrist Manual Muscle Testing Right Flexion (C7) 4+ Good+ Comments Generally 5/5, except as noted above. Left Flexion (C7) 3+ Fair+ Extension (C6) 5 Normal Ulnar Deviation 2 Poor Radial Deviation 3 Fair Comments Strength limited by pain Finger/Thumb Strength Finger Manual Muscle Testing Left Thumb Flexion (fingers C8) 5 Normal Extension (thumb C8) 3+ Fair+ Adduction 5 Normal Abduction (fingers T1) 5 Normal Comments Opposition is 5/5 Limited in not able to touch base of little finger. PT-OP-Q Treatments Start: 07/18/21 10:34 Freq: Status: Active Protocol: Document 08/08/21 14:29 LRN (Rec: 08/08/21 15:31 LRN [id number]) Therapeutic Exercises Sitting Exercises L wrist ext Sitting Exercise Name Stretch into wrist ext Side left Reps/Minutes 4' Comments Extra time taken for set up with and determining max stretch Thumb opposition stretch Side left Equipment Used Reps/Minutes 4' Comments Extra time taken for set up with and determining max stretch Thumb flex stretch Side left Equipment Used Reps/Minutes 4' Comments Extra time taken for set up with and determining max stretch L wrist supination Sitting Exercise Name L wrist sup stretch & active stretch Side left Equipment Used Reps/Minutes 5' Comments Extra time taken for set up with and determining max stretch Manual Therapy Treatment Soft Tissue Mobilization L wrist AB/extensor Body Location L thumb AB/ext muscles Mobilization Type Strumming,Sustained Pressure Intensity/Depth Moderate Body Position Sitting L wrist Flexors Body Location L wrist flexors Mobilization Type Cross-Friction,Strumming Intensity/Depth Moderate Body Position Supine Manual Traction L Wrist Details Traction @ L wrist & with passive wrist UD Body Position Sitting Reps/Duration 2' Manual Techniques MWM wrist ext Type PA of L Scaphoid/Lunate with active wrist ext Body Location L wrist Body Position Sitting Reps/Duration 3' Self-Care/Home Management Treatment Education Patient Education Joint Protection,Pain Management Other Education -Reviewed RICE treatment for edema management, including stretch into wrist ext after icing. -Discussed use of L wrist splint, wearing nighttime. PT-OP-R Modalities Start: 07/26/21 12:36 Freq: Status: Active Protocol: Document 07/26/21 13:42 LRN (Rec: 07/26/21 15:54 LRN [id number]) Hot Pack/Cold Pack Treatment Cold Pack Location L radial side of wrist Patient Position Sitting Treatment Duration (minutes) 1 Patient Tolerance Poor Comments Discontinued due to increased pain. Ultrasound Therapy Treatment L thumb AB tendon Treatment Duration (minutes) 2 Patient Position Sitting Coupling Medium Ultrasound Gel Applicator Size (cm2) 2 Frequency Setting (mHz) 3 Mode Setting Pulsed Duty Cycle 50% Intensity Setting (w/cm2) 0.6 Comments Started intensity at 1.0 and decreased to 0.6. Pt had complaints of pain and heat with use of US; therefore discontinued. PT-OP-T Assessment and Plan Start: 07/18/21 10:34 Freq: Status: Active Protocol: Document 08/08/21 14:29 LRN (Rec: 08/08/21 15:31 LRN [id number]) Physical Therapy Assessment Goals Three Impairment Constant L wrist pain rated 6/ 10 Short Term Goal (STG) Decrease L wrist pain to no more than 3/10 in 4 weeks. With light objects, pt will be able to carry amd lift without pain and chop onions without pain. (08/08/21: Pt able to reach her back and lift a cup without pain). STG Duration 08/17/21 (08/08/21: Progressing) Transport Pilot Goal (LTG) No wrist pain with daily activities and no pain with use of wrist splint for activities of lifting, carrying groceries or garbage bags up to 25# and put on her shirts and pants without pain. (08/08/21: Pt has had intermittent L wrist painfree days with daily activities). LTG Duration 09/16/21 (Progressing) Two Impairment Decreased L wrist mobility Short Term Goal (STG) Pt will be independent on a self care L wrist mobility exercise program. (08/08/21: HEP: Wrist ext and UD stretch) STG Duration 07/25/21 (08/08/21: Progressed) Transport Pilot Goal (LTG) Pt will demonstrate normal L wrist AROM without onset of pain. LTG Duration 09/16/21 One Impairment Lacks appropriate self care HEP Short Term Goal (STG) Pt will demonstrate good knowledge of self care edema management and use of L wrist splint. (08/08/21: Reviewed RICE edema management & L wrist splint wear). STG Duration 08/17/21 (08/08/21: MET GOAL) Usp Goal (LTG) Pt will be independent in a self care HEP. (08/08/21: HEP: Wrist ext & UD stretch). LTG Duration 09/24/21 Progress Towards Goals Progress Comments Progressed HEP of L wrist stretch. Assessment Summary Assessment Reportedly pt is having less L radial wrist pain and is tolerating more functional use of the L hand intermittently painfree while on vacation. Supination AROM appears normal Physical Therapy Plan Frequency and Duration Frequency of Treatment 2x/Week Plan of Care Start Date 07/18/21 Plan of Care End Date 09/16/21 Next Visit Focus/Plan Next Note Type Treatment Note Next Visit Plan Assess L wrist AROM. STM of L Thumb AB/Ext & L wrist extensors>flexors, Manual: Wrist distraction, PROM L wrist, thumb. K-tape for edema, support HEP: L wrist PROM for (flex), thumb opposition to little finger, Try starting low level L wrist /thumb strengthening iontophoresis, paraffin dip.
--- NOTE | 2021-08-12 17:22 | PT.OTN ---
Current Diagnoses Pain in left wrist (08/12/21) Stiffness of left hand, not elsewhere classified (08/12/21) Muscle weakness (generalized) (08/12/21) Other enthesopathies, not elsewhere classified (08/12/21) Physical Therapy Treatment Note PT-OP-A Visit Information Start: 07/18/21 10:34 Freq: Status: Active Protocol: Document 08/12/21 14:23 LRN (Rec: 08/12/21 15:10 LRN [id number]) Out-Patient Physical Therapy Visit Information Visit Information Visit Type Treatment Note Visit Start Time 14:23 Visit Stop Time 15:08 Total Visit Minutes 45 Visit Number 5 Evaluation Information Evaluation Date 07/18/21 Precautions Precautions None PT-OP-B Current Condition Start: 07/18/21 10:34 Freq: Status: Active Protocol: Document 07/18/21 10:36 LRN (Rec: 07/18/21 12:30 LRN [id number]) Current Condition History of Current Condition Onset Date 2 months ago. Current Complaints Pain at distal end of radius of L wrist. History of Current Condition Lifting 10-25# weight repetitive lifting basket caused onset of pain. Prior Treatments and Tests X-ray (3 weeks ago): was told no bone broken and was given Naproxen. Given wrist splint by referring provider. 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 September is the next time the boat goes out. Pt is R handed. Treatment Goals Patient/Caregiver Goals Pt goal is to return to prior level of function. 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 Current Functional Impairments (Reported) Functional Limitations- ADL's Difficulty carrying and lifting garbage bags (or objects 10-25#), chopping onions, putting shirts or pants on or off. Personal Factors Other Personal Factors That May Effect Lives alone. Therapy/Recovery Next job on boat is Sep 16, 2021. PT-OP-C Subjective Start: 07/18/21 10:34 Freq: Status: Active Protocol: Document 08/12/21 14:23 LRN (Rec: 08/12/21 15:10 LRN [id number]) OP-PT Subjective Patient Comments Patient Comments L wrist is still painfu (02/14) l, saw Dr. Dailey this morning and was given Voltarin . Was told tendonisits and will have another follow up visit on 10/06/20. Going onto the boat on 09/13/20. PT-OP-H Neuro Start: 07/18/21 10:34 Freq: Status: Active Protocol: Document 07/18/21 10:36 LRN (Rec: 07/18/21 12:30 LRN [id number]) Sensation Evaluation Gross Sensation Gross Sensation Left UE Impaired Sensation Description Coldness PT-OP-J Posture/Palpation/Skin Start: 07/18/21 10:34 Freq: Status: Active Protocol: Document 07/23/21 13:35 LRN (Rec: 07/23/21 14:44 LRN [id number]) Palpation Assessment Location L Small bones Palpation Location Small bones of wrist Palpation Details No tenderness with PA or AP glides. PT-OP-K Range of Motion Start: 07/18/21 10:34 Freq: Status: Active Protocol: Document 07/18/21 10:36 LRN (Rec: 07/18/21 12:30 LRN [id number]) Elbow/Forearm Range of Motion Elbow/Forearm Right Active Elbow/Forearm ROM WFL Yes ROM Testing Position Sitting Left Active Elbow/Forearm ROM WFL Yes ROM Testing Position Sitting Wrist Goniometric Range of Motion Wrist Right Wrist ROM WFL Yes Flexion Active (degrees) 78 Extension Active (degrees) 58 Ulnar Deviation Active (degrees) 32 Radial Deviation Active (degrees) 20 Left Wrist ROM WFL No Flexion Active (degrees) 78 Extension Active (degrees) 40 Ulnar Deviation Active (degrees) 10 Radial Deviation Active (degrees) 22 PT-OP-L Special Tests Start: 07/18/21 10:34 Freq: Status: Active Protocol: Document 07/23/21 13:35 LRN (Rec: 07/23/21 14:44 LRN [id number]) Special Tests Wrist/Hand Special Tests Scaphoid Thrust Test Test Results L wrist: Negative Comments No pain; therefore neg for scaphoid fracture. Gottlieb's Test Test Results L wrist: Negative. Comments No pain in wrist with testing; therefore negative for scaphoid involvement. PT-OP-M Strength Start: 07/18/21 10:34 Freq: Status: Active Protocol: Document 07/18/21 10:36 LRN (Rec: 07/18/21 12:30 LRN [id number]) Elbow/Forearm Strength Elbow and Forearm Manual Muscle Testing Right Comments Generally 5/5 Left Flexion (C6) 5 Normal Extension (C7) 4+ Good+ Pronation 4+ Good+ Supination 5 Normal Comments L lateral wrist pain with resisted elbow extension, pronation Wrist Strength Wrist Manual Muscle Testing Right Flexion (C7) 4+ Good+ Comments Generally 5/5, except as noted above. Left Flexion (C7) 3+ Fair+ Extension (C6) 5 Normal Ulnar Deviation 2 Poor Radial Deviation 3 Fair Comments Strength limited by pain Finger/Thumb Strength Finger Manual Muscle Testing Left Thumb Flexion (fingers C8) 5 Normal Extension (thumb C8) 3+ Fair+ Adduction 5 Normal Abduction (fingers T1) 5 Normal Comments Opposition is 5/5 Limited in not able to touch base of little finger. PT-OP-Q Treatments Start: 07/18/21 10:34 Freq: Status: Active Protocol: Document 08/12/21 14:23 LRN (Rec: 08/12/21 15:10 LRN [id number]) Therapeutic Exercises Sitting Exercises L wrist sup strengthening Sitting Exercise Name Active supination Side left Reps/Minutes 10x 3 Comments s/p K-tape application L wrist ext strengthening Sitting Exercise Name Active Ext Side left Reps/Minutes 10x 3 Comments s/p K-tape application L wrist ext Sitting Exercise Name Stretch into wrist ext Side left Reps/Minutes ' Comments Extra time taken for set up with during ex & for limiting to max stretch Thumb opposition stretch Side left Equipment Used Reps/Minutes 5' Comments Extra time taken for set up with during ex & for limiting to max stretch Thumb flex stretch Side left Equipment Used Reps/Minutes 5' Comments Extra time taken for set up with during ex & for limiting to max stretch L wrist supination Sitting Exercise Name L wrist sup stretch & active stretch Side left Equipment Used Reps/Minutes 5' Comments Extra time taken for set up with during ex & for limiting to max stretch Manual Therapy Treatment Taping L DeQuervain's Body Location L radial wrist Treatment Focus Edema management Type of Tape Kinesio Tape Skin Inspection Good. Comments Y strip wrapping around thumb for support L Scaphoid Support Body Location L Scaphoid PA support Treatment Focus PA support Type of Tape Kinesio Tape Skin Inspection Good Comments X taping for mechanical correction to limit posterior glide of scaphoid. Manual Techniques MWM wrist ext Type PA of L Scaphoid/Lunate PA w/ active wrist ext Body Location L wrist Body Position Sitting Reps/Duration 3' PT-OP-R Modalities Start: 07/26/21 12:36 Freq: Status: Active Protocol: Document 07/26/21 13:42 LRN (Rec: 07/26/21 15:54 LRN [id number]) Hot Pack/Cold Pack Treatment Cold Pack Location L radial side of wrist Patient Position Sitting Treatment Duration (minutes) 1 Patient Tolerance Poor Comments Discontinued due to increased pain. Ultrasound Therapy Treatment L thumb AB tendon Treatment Duration (minutes) 2 Patient Position Sitting Coupling Medium Ultrasound Gel Applicator Size (cm2) 2 Frequency Setting (mHz) 3 Mode Setting Pulsed Duty Cycle 50% Intensity Setting (w/cm2) 0.6 Comments Started intensity at 1.0 and decreased to 0.6. Pt had complaints of pain and heat with use of US; therefore discontinued. PT-OP-T Assessment and Plan Start: 07/18/21 10:34 Freq: Status: Active Protocol: Document 08/12/21 14:23 LRN (Rec: 08/12/21 15:10 LRN [id number]) Physical Therapy Assessment Goals Three Impairment Constant L wrist pain rated 6/ 10 Short Term Goal (STG) Decrease L wrist pain to no more than 3/10 in 4 weeks. With light objects, pt will be able to carry amd lift without pain and chop onions without pain. (08/08/21: Pt able to reach her back and lift a cup without pain). STG Duration 08/17/21 (08/08/21: Progressing) Assisted Goal (LTG) No wrist pain with daily activities and no pain with use of wrist splint for activities of lifting, carrying groceries or garbage bags up to 25# and put on her shirts and pants without pain. (08/08/21: Pt has had intermittent L wrist painfree days with daily activities). LTG Duration 09/16/21 (Progressing) Two Impairment Decreased L wrist mobility Short Term Goal (STG) Pt will be independent on a self care L wrist mobility exercise program. (08/08/21: HEP: Wrist ext and UD stretch) STG Duration 07/25/21 (08/08/21: Progressed) Regional Account Executive Goal (LTG) Pt will demonstrate normal L wrist AROM without onset of pain. LTG Duration 09/16/21 One Impairment Lacks appropriate self care HEP Short Term Goal (STG) Pt will demonstrate good knowledge of self care edema management and use of L wrist splint. (08/08/21: Reviewed RICE edema management & L wrist splint wear). STG Duration 08/17/21 (08/08/21: MET GOAL) Regional Account Executive Goal (LTG) Pt will be independent in a self care HEP. (08/08/21: HEP: Wrist ext & UD stretch). (08/12/21: I/S pt in wrist AROM flex/ext strengthening & focus on stretch into UD) LTG Duration 09/24/21 Assessment Summary Assessment Pt able to perform active L wrist ext without Thumb pain after X-Kinesiotaping, but pain still with Radial deviation stretch. Physical Therapy Plan Frequency and Duration Frequency of Treatment 2x/Week Plan of Care Start Date 07/18/21 Plan of Care End Date 09/16/21 Next Visit Focus/Plan Next Note Type Treatment Note Next Visit Plan Pt leaving the area after next session and will return for 1 visit prior to leaving on a boat for her job; therefore Assess L wrist AROM and goals. K-tape for edema, support, Manual: Wrist distraction, PROM L wrist, thumb. HEP: L wrist PROM for (flex), thumb opposition to little finger, Low level L wrist (flex&ext/ thumb strengthening, if tolerated UD/RD As needed, STM of L Thumb AB/ Ext & L wrist extensors> flexors, iontophoresis. MD follow up visit on 10/06/20
--- NOTE | 2021-09-09 08:37 | PT-OP ANOTE ---
Per phone, pt reports she cancelled her appointment via Tele[employer] last week. States she has been all she was told to do but her L wrist still hurts off and on and isworse and more painful in the cold. She is not sure if there is light duty available. She said she is to go back to see her doctor if she still has pain after therapy. I recommended the pt return to her physician for further assessment due to pain still persisting and discussed discharging pt from physical therapy. Pt is agreeable.
--- NOTE | 2021-09-09 08:52 | PT.OPDS ---
Current Diagnoses Pain in left wrist (08/12/21) Stiffness of left hand, not elsewhere classified (08/12/21) Muscle weakness (generalized) (08/12/21) Other enthesopathies, not elsewhere classified (08/12/21) Visit Care Team Role Provider Type KEAGAN Kennedy Family Provider Advanced Floor Supervisor Primary Care Provider Specialty: [facility] Practice Address: [address] [place] [address], [id number] Email: [email or web address] Alden Dailey DO Attending Provider Physician Referring Provider Specialty: [facility] Address: [address] [place] [address], [phone] Email: [email or web address] Visit Number Visit Number 5 Discharge Summary PT-OP-B Current Condition Start: 07/18/21 10:34 Freq: Status: Active Protocol: Document 07/18/21 10:36 LRN (Rec: 07/18/21 12:30 LRN [id number]) Current Condition History of Current Condition Onset Date 2 months ago. Current Complaints Pain at distal end of radius of L wrist. History of Current Condition Lifting 10-25# weight repetitive lifting basket caused onset of pain. Prior Treatments and Tests X-ray (3 weeks ago): was told no bone broken and was given Naproxen. Given wrist splint by referring provider. 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 After spending 4 months on the boat now has L wrist pain. September is the next time the boat goes out. Pt is R handed. Treatment Goals Patient/Caregiver Goals Pt goal is to return to prior level of function. 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 Current Functional Impairments (Reported) Functional Limitations- ADL's Difficulty carrying and lifting garbage bags (or objects 10-25#), chopping onions, putting shirts or pants on or off. Personal Factors Other Personal Factors That May Effect Lives alone. Therapy/Recovery Next job on boat is Sep 16, 2021. PT-OP-C Subjective Start: 07/18/21 10:34 Freq: Status: Active Protocol: Document 09/09/21 08:42 LRN (Rec: 09/09/21 08:52 LRN [id number]) OP-PT Subjective Patient Comments Patient Comments Per phone pt reports cancelling her appt today last week. States her L wrist continues to hurt, but some days is better than others. States the cold makes her wrist hurt more. Pt notes she is supposed to return to her physician if she still has pain after therapy. Pt agreeable to discharge from therapy with return to physician for further assessment/care. PT-OP-H Neuro Start: 07/18/21 10:34 Freq: Status: Active Protocol: Document 07/18/21 10:36 LRN (Rec: 07/18/21 12:30 LRN [id number]) Sensation Evaluation Gross Sensation Gross Sensation Left UE Impaired Sensation Description Coldness PT-OP-J Posture/Palpation/Skin Start: 07/18/21 10:34 Freq: Status: Active Protocol: Document 07/23/21 13:35 LRN (Rec: 07/23/21 14:44 LRN [id number]) Palpation Assessment Location L Small bones Palpation Location Small bones of wrist Palpation Details No tenderness with PA or AP glides. PT-OP-K Range of Motion Start: 07/18/21 10:34 Freq: Status: Active Protocol: Document 07/18/21 10:36 LRN (Rec: 07/18/21 12:30 LRN [id number]) Elbow/Forearm Range of Motion Elbow/Forearm Right Active Elbow/Forearm ROM WFL Yes ROM Testing Position Sitting Left Active Elbow/Forearm ROM WFL Yes ROM Testing Position Sitting Wrist Goniometric Range of Motion Wrist Right Wrist ROM WFL Yes Flexion Active (degrees) 78 Extension Active (degrees) 58 Ulnar Deviation Active (degrees) 32 Radial Deviation Active (degrees) 20 Left Wrist ROM WFL No Flexion Active (degrees) 78 Extension Active (degrees) 40 Ulnar Deviation Active (degrees) 10 Radial Deviation Active (degrees) 22 PT-OP-L Special Tests Start: 07/18/21 10:34 Freq: Status: Active Protocol: Document 07/23/21 13:35 LRN (Rec: 07/23/21 14:44 LRN [id number]) Special Tests Wrist/Hand Special Tests Scaphoid Thrust Test Test Results L wrist: Negative Comments No pain; therefore neg for scaphoid fracture. Gottlieb's Test Test Results L wrist: Negative. Comments No pain in wrist with testing; therefore negative for scaphoid involvement. PT-OP-M Strength Start: 07/18/21 10:34 Freq: Status: Active Protocol: Document 07/18/21 10:36 LRN (Rec: 07/18/21 12:30 LRN [id number]) Elbow/Forearm Strength Elbow and Forearm Manual Muscle Testing Right Comments Generally 5/5 Left Flexion (C6) 5 Normal Extension (C7) 4+ Good+ Pronation 4+ Good+ Supination 5 Normal Comments L lateral wrist pain with resisted elbow extension, pronation Wrist Strength Wrist Manual Muscle Testing Right Flexion (C7) 4+ Good+ Comments Generally 5/5, except as noted above. Left Flexion (C7) 3+ Fair+ Extension (C6) 5 Normal Ulnar Deviation 2 Poor Radial Deviation 3 Fair Comments Strength limited by pain Finger/Thumb Strength Finger Manual Muscle Testing Left Thumb Flexion (fingers C8) 5 Normal Extension (thumb C8) 3+ Fair+ Adduction 5 Normal Abduction (fingers T1) 5 Normal Comments Opposition is 5/5 Limited in not able to touch base of little finger. PT-OP-T Assessment and Plan Start: 07/18/21 10:34 Freq: Status: Active Protocol: Document 09/09/21 08:42 LRN (Rec: 09/09/21 08:52 LRN [id number]) Physical Therapy Assessment Goals Three Impairment Constant L wrist pain rated 6/ 10 Short Term Goal (STG) Decrease L wrist pain to no more than 3/10 in 4 weeks. With light objects, pt will be able to carry amd lift without pain and chop onions without pain. (08/08/21: Pt able to reach her back and lift a cup without pain). STG Duration 08/17/21 (08/08/21: Progressing, goal not met) Para Operator Goal (LTG) No wrist pain with daily activities and no pain with use of wrist splint for activities of lifting, carrying groceries or garbage bags up to 25# and put on her shirts and pants without pain. (08/08/21: Pt has had intermittent L wrist painfree days with daily activities). LTG Duration 09/16/21 (Progressing, goal not met) Two Impairment Decreased L wrist mobility Short Term Goal (STG) Pt will be independent on a self care L wrist mobility exercise program. (08/08/21: HEP: Wrist ext and UD stretch) STG Duration 07/25/21 (08/08/21: Progressed, goal not met) Para Operator Goal (LTG) Pt will demonstrate normal L wrist AROM without onset of pain. LTG Duration 09/16/21 (09/09/21: GOAL NOT MET) One Impairment Lacks appropriate self care HEP Short Term Goal (STG) Pt will demonstrate good knowledge of self care edema management and use of L wrist splint. (08/08/21: Reviewed RICE edema management & L wrist splint wear). STG Duration 08/17/21 (08/08/21: MET GOAL) Halfway Goal (LTG) Pt will be independent in a self care HEP. (08/08/21: HEP: Wrist ext & UD stretch). (08/12/21: I/S pt in wrist AROM flex/ext strengthening & focus on stretch into UD) LTG Duration 09/24/21 (09/09/21: GOAL NOT MET) Assessment Summary Assessment Per phone, pt's L wrist/thumb continues to hurt with varying intensity. She has been consistent with therapy and appears to be doing her home care as educated. Goals were partially met (self care goals ), and some improvement was made to reduce her pain. The pt travels over 1.5 hrs to attend therapy; therefore I recommended that the pt seek a closer clinic with a hand specialist for further treatment if needed. Physical Therapy Plan Discharge Physical Therapy Discharge Reasons Plateau in Progress Discharge Comments Pt has reported doing all she was told in therapy to do and continues to have L wrist pain of variable degree. Pt referred back to referring physician for further medical assessment/care. Thank you for your referral.
== END 2021-10-08 08:39 ==
LOC: PHYS 14:15
PROVIDERS: Family Provider Nurse Practitioner Family; PCP Nurse Practitioner Family; Referring Provider Family Medicine; Visit Provider Family Medicine
DX: M77.8 Other enthesopathies, not elsewhere classified (principal); M62.81 Muscle weakness (generalized); M25.532 Pain in left wrist; M25.642 Stiffness of left hand, not elsewhere classified
CPT/HCPCS: 97035; 97110; 97140; 97162

== ENCOUNTER → 2021-08-14 17:46 | Outpatient (CLI) | payer OTHER, SELFPAY ==
--- NOTE | 2021-08-14 17:47 | DI.MG.S_ITS ---
BILATERAL DIGITAL SCREENING MAMMOGRAM 3D/2D WITH CAD: 08/14/2021 CLINICAL: Routine screening. Comparison is made to exams dated: 07/24/2020 mammogram, 09/20/2018 mammogram, and 07/10/2016 mammogram - [facility]. The tissue of both breasts is heterogeneously dense. This may lower the sensitivity of mammography. Current study was also evaluated with a Computer Aided Detection (CAD) system. No significant masses, calcifications, or other findings are seen in either breast. There has been no significant interval change. IMPRESSION: NEGATIVE There is no mammographic evidence of malignancy. A 1 year screening mammogram is recommended. This exam was interpreted at Station ID: [id number]. NOTE: For mammograms, a report in lay terms will be sent to the patient. Approximately 15% of breast malignancies will not be visualized mammographically. In the management of a palpable breast mass, a negative mammogram must not discourage biopsy of a clinically suspicious lesion. Electronically Signed By: Tsering monge/yaritza:08/15/2021 09:20:00 letter sent: Normal Exam ACR BI-RADS Category 1: Negative [id number]
== END ==
PROVIDERS: Family Provider Nurse Practitioner Family; PCP Family Medicine; Referring Provider Nurse Practitioner Family; Visit Provider Nurse Practitioner Family
DX: Z12.31 Encounter for screening mammogram for malignant neoplasm of breast (principal)
CPT/HCPCS: 77063; 77067

== ENCOUNTER → 2022-06-26 10:02 | Outpatient (CLI) | payer OTHER, MEDICAID, SELFPAY ==
[2022-06-26 11:03] LABS: Add Manual Diff / Slide Review NO; Basophils Absolute Auto 0 /uL (0-100); Basophils Percent Auto 0.4 % (0-2); Eosinophils Absolute Auto 100 /uL (0-450); Eosinophils Percent Auto 1.5 % (2-4); Hematocrit 39.2 % (36-46); Hemoglobin 12.9 g/dL (12.0-16.0); Lymphocytes Absolute Auto 1300 /uL (1100-4500); Lymphocytes Percent Auto 21.9 % (25-40); Mean Corpuscular HGB Conc 32.9 % (30-36); Mean Corpuscular Hemoglobin 28.9 PG (26-34); Mean Corpuscular Volume 87.9 fL (80-100); Monocytes Absolute Auto 400 /uL (0-900); Monocytes Percent Auto 6.8 % (3-14); Neutrophils Absolute Auto 4000 /uL (1500-7000); Neutrophils Percent Auto 69.4 % (50-75); Platelet Count 286 X10^3/uL (150-400); Red Blood Cell Count 4.45 X10^6/uL (4.0-5.2); Red Cell Distribution Width 13.5 % (11.6-14.8); White Blood Cell Count 5.8 X10^3/uL (4.5-11.0)
[2022-06-26 11:26] LABS: Alanine Aminotransferase 21 IU/L (<35); Albumin 4.1 g/dL (3.5-5.0); Albumin Globulin Ratio 1.2 (1.0-2.8); Alkaline Phosphatase 63 U/L (38-126); Aspartate Aminotransferase 23 IU/L (14-36); Bilirubin Total 0.5 mg/dL (0.2-1.3); Blood Urea Nitrogen 11 mg/dL (7-17); Calcium 8.5 mg/dL (8.4-10.2); Carbon Dioxide 23 mmol/L (22-32); Chloride 104 mmol/L (98-107); Cholesterol 199 mg/dL (140-199); Estimated Glomerular Filt Rate > 60 mL/min (>60); Globulin 3.4 g/dL (1.7-4.1); Glucose 101 mg/dL (70-100); HDL Cholesterol 59 mg/dL (40-60); HEMOLYSIS < 15 (0-50); LDL Cholesterol Calculated 109 mg/dL (<100); Potassium 3.9 mmol/L (3.4-5.1); Sodium 138 mmol/L (137-145); Total Protein 7.5 g/dL (6.3-8.2); Triglycerides 157 mg/dL (35-150)
[2022-06-26 11:54] LABS: TSH w/ Reflex to FT4 0.92 uIU/mL (0.47-4.68)
== END ==
PROVIDERS: Family Provider Nurse Practitioner Family; PCP Family Medicine; Referring Provider Family Medicine; Visit Provider Family Medicine
DX: Z00.00 Encounter for general adult medical examination without abnormal findings (principal); R12 Heartburn
CPT/HCPCS: 36415; 80053; 80061; 84443; 85025

== ENCOUNTER → 2022-08-15 08:09 | Outpatient (CLI) | payer OTHER, MEDICAID, SELFPAY ==
[2022-08-15 09:32] LABS: Hemoglobin A1C% w Est Avg Glu 5.5 % (4.0-6.0)
[2022-08-15 10:22] LABS: Alanine Aminotransferase 56 IU/L (<35); Albumin 4.7 g/dL (3.5-5.0); Albumin Globulin Ratio 1.4 (1.0-2.8); Alkaline Phosphatase 69 U/L (38-126); Aspartate Aminotransferase 31 IU/L (14-36); BUN Creatinine Ratio 15.6 (6-22); Bilirubin Total 0.6 mg/dL (0.2-1.3); Blood Urea Nitrogen 10 mg/dL (7-17); Calcium 9.1 mg/dL (8.4-10.2); Carbon Dioxide 24 mmol/L (22-32); Chloride 103 mmol/L (98-107); Cholesterol 231 mg/dL (140-199); Estimated Glomerular Filt Rate > 60 mL/min (>60); Globulin 3.3 g/dL (1.7-4.1); Glucose 101 mg/dL (70-100); HDL Cholesterol 74 mg/dL (40-60); HEMOLYSIS < 15 (0-50); LDL Cholesterol Calculated 113 mg/dL (<100); Potassium 4.1 mmol/L (3.4-5.1); Sodium 137 mmol/L (137-145); Triglycerides 218 mg/dL (35-150)
--- NOTE | 2022-08-15 13:47 | DI.RAD.S_ITS ---
PROCEDURE: XR WRIST LT MIN 3V INDICATIONS: Increasing pain/swelling of Left wrist TECHNIQUE: 4 views of the wrist were acquired. COMPARISON: [facility], CR, XR WRIST LT MIN 3V, 06/25/2021, 15:39. FINDINGS: Bones: No fractures or dislocations. No suspicious bony lesions. Mild 1st CMC and STT joint degenerative changes. Scaphoid view: No acute fracture visualized. Soft tissues: No suspicious soft tissue calcifications. IMPRESSION: No acute osseous abnormality. If symptoms persist, follow-up radiographs and/or CT or MRI may be helpful for further evaluation. Dictated by: Seven Mauro M.D. on 08/16/2022 at 11:00 Approved by: Seven Mauro M.D. on 08/16/2022 at 11:03
--- NOTE | 2022-08-15 13:47 | DI.RAD.S_ITS ---
PROCEDURE: XR WRIST RT MIN 3V INDICATIONS: Increasing pain/swelling of Right wrist TECHNIQUE: 4 views of the wrist were acquired. COMPARISON: [facility], CR, XR WRIST LT MIN 3V, 06/25/2021, 15:39. FINDINGS: Bones: No fractures or dislocations. No suspicious bony lesions. Mild 1st CMC and STT joint degenerative changes. Scaphoid view: No acute fracture visualized. Soft tissues: No suspicious soft tissue calcifications. IMPRESSION: No acute osseous abnormality. If symptoms persist, follow-up radiographs and/or CT or MRI may be helpful for further evaluation. Dictated by: Seven Mauro M.D. on 08/16/2022 at 10:57 Approved by: Seven Mauro M.D. on 08/16/2022 at 11:00
--- NOTE | 2022-08-15 13:47 | DI.MG.S_ITS ---
BILATERAL DIGITAL SCREENING MAMMOGRAM 3D/2D WITH CAD: 08/15/2022 CLINICAL: Routine screening. Comparison is made to exams dated: 08/14/2021 mammogram, 07/24/2020 mammogram, and 09/20/2018 mammogram - [facility]. Both breasts are heterogeneously dense, which may obscure small masses (category c / 51-75% glandular tissue). Current study was also evaluated with a Computer Aided Detection (CAD) system. No significant masses, calcifications, or other findings are seen in either breast. There has been no significant interval change. IMPRESSION: NEGATIVE There is no mammographic evidence of malignancy. A 1 year screening mammogram is recommended. Based on the Tyrer Cuzick model (a risk assessment model) the patient's lifetime risk is 11.6% and her 10 year risk is 2.1%. According to the ACR, ACS, and NCCN guidelines, an annual breast MRI exam along with mammogram is recommended if the patient's lifetime risk is 20% or greater. This exam was interpreted at Station ID: [id number]. NOTE: For mammograms, a report in lay terms will be sent to the patient. Approximately 15% of breast malignancies will not be visualized mammographically. In the management of a palpable breast mass, a negative mammogram must not discourage biopsy of a clinically suspicious lesion. Electronically Signed By: Tsering [email or web address]:08/15/2022 17:33:09 letter sent: Normal Exam ACR BI-RADS Category 1: Negative [id number]
== END ==
PROVIDERS: Family Provider Nurse Practitioner Family; PCP Family Medicine; Referring Provider Family Medicine; Visit Provider Family Medicine
DX: Z12.31 Encounter for screening mammogram for malignant neoplasm of breast (principal); M65.4 Radial styloid tenosynovitis [de Quervain]; M25.431 Effusion, right wrist; M25.532 Pain in left wrist; M25.531 Pain in right wrist; M77.8 Other enthesopathies, not elsewhere classified; R12 Heartburn; E78.5 Hyperlipidemia, unspecified; R73.9 Hyperglycemia, unspecified
CPT/HCPCS: 36415; 73110; 77063; 77067; 80053; 80061; 83036

== ENCOUNTER → 2022-08-18 09:30 | Outpatient (CLI) | payer OTHER, MEDICAID, SELFPAY ==
--- NOTE | 2022-08-18 09:32 | DI.RAD.S_ITS ---
PROCEDURE: FL BARIUM SWALLOW W SPEECH INDICATIONS: Subjective feeling of dysphagia COMPARISON: None. TECHNIQUE: Examination was conducted in conjunction with speech pathology per standard protocol. In the lateral projection, filming was performed of the patient swallowing. AP projection filming may also be performed with patient swallowing. COMPARISON: FINDINGS: Function: The oral preparatory phase appears normal, with proper containment. The subsequent oral propulsive phase, pharyngeal phase, and esophageal phase of swallowing also appear normal with all proffered substances. No laryngotracheal penetration or aspiration. No pathologic vallecular pooling. Morphology: No cricopharyngeal bar is identified. No cervical esophageal webs. No Zenker's diverticulum. No strictures. IMPRESSION: Normal esophagram. Please see separate speech pathology report for further details. Dictated by: Bennett Cleveland M.D. on 08/18/2022 at 11:21 Approved by: Bennett Cleveland M.D. on 08/18/2022 at 11:22
--- NOTE | 2022-08-18 12:25 | ST.SWALLOW ---
Visit Care Team Role Provider Type KEAGAN Kennedy Family Provider Advanced Manufacturing Engineer Chief Specialty: Medical Address: [address] [place] [address], [id number] Email: [email or web address] Alden Dailey DO Attending Provider Physician Primary Care Provider Referring Provider Specialty: Family Practice Address: [address] [place] [address], [id number] Email: [email or web address] Modified Barium Swallow Study DRIER [employer]ER Modified Barium Swallow Study Start: 08/18/22 11:31 Freq: Status: Active Protocol: Document 08/18/22 11:32 LNK (Rec: 08/18/22 11:50 LNK [id number]) Modified Barium Swallow Study Total Time Visit Start Time 09:30 Visit Stop Time 10:00 Total Visit Minutes 30 Referral Referring Physician Alden Dailey MD Reason for Referral difficulty with swallowing Setting Setting Outpatient Care Patient Information Identification Type Name,Date of Patient History Pt was seen for a Modified barium Swallow Study (MBSS) at the referral of Dr. Dailey. According to records reviewed and the pt's report, she has been experiencing a sensation of food sticking in her throats. She describes the sensation as near the back of her mandible beneath her left ear. She noted that after eating she feels a need to push/squeeze that area downward in order to eliminate the sensation. This sensation occurs every time she eats solid foods. Subjective Observations Pt was seated in the fluoroscopy chair with instructions and procedures described to her. She indicated that she understood and agreed to proceed. Patient Positioning Position View Lat-A/P Imaging Lateral View Textures Administered Trials Presented Thin Liquid via Spoon,Thin Liquid via Cup,Pudding Thick Liquid via Spoon,Regular Textures Oral Phase Source: MBSIMP (TM) (C) Bolus Specific Scoring Grid Lip Closure No Impairment (WNL) Tongue Control During Bolus Hold No Impairment (WNL) Bolus Prep/Mastication No Impairment (WNL) Bolus Transport/Lingual Motion No Impairment (WNL) A/P Lingual Propulsion Delay No Oral Residue No Impairment (WNL) Residue Clearing No Impairment (WNL) Nasal Regurgitation No Additional Oral Phase Observations OME and diadochokinesis were observed to be WNL. Missing 1molar on lower left did not impact mastication. Oral phase of swallowing was WNL Pharyngeal Phase Source: MBSIMP (TM) (C) Bolus Specific Scoring Grid Delayed Initiation of Pharyngeal Swallow No Soft Palate Elevation No Impairment (WNL) Tongue Base Strength/Range of Motion No Impairment (WNL) Residue Along the Tongue Base No Clearance of Residue Along Tongue Base No Impairment (WNL) Laryngeal Elevation No Impairment (WNL) Anterior Hyoid Movement No Impairment (WNL) Epiglottic Range of Motion No Impairment (WNL) Vallecular Residue No Laryngeal Vestibular Closure No Impairment (WNL) Pharyngeal Stripping Wave No Impairment (WNL) Pharyngeal Contraction No Impairment (WNL) Posterior Pharyngeal Wall Residue No Upper Esophageal Sphincter Opening WFL Residue in the Pyriform Sinuses No Esophageal Clearance Upright Position No Impairment (WNL) Pharyngoesophageal Backflow Observed No Additional Pharyngeal Phase Observations Pharyngeal phase of swallowing was observed to be WNL. There were no signs of diverticulae , pooling of residue or retention of solid food observed. A/P View Textures Administered Trials Presented Thin Liquid via Spoon,Regular Textures,Barium Tablet A/P View Observations Pharyngeal Contraction No Impairment (WNL) Vocal Fold Function Good Esophageal Function No Impairment (WNL) Esophageal Clearance Upright Position No Impairment (WNL) Additional Observations Across all swallow trials there appeared to be a large protrusion of the cervical spine (osteophyte?) at the level of the UES that narrowed the UES opening. All trials did clear the UES with no pharyngoesophageal residue observed. This narrowing did not appear to be related to the pt's description of her swallow difficulty. No pharyngeal residue was observed across all trials. Esophageal Observations Esophageal Function After swallowing the cookie trial in AP position, there was hesitation of the bolus at the aortic arch (WNL). Instructions to drink more water cleared the esophagus contents to the stomach. The barium tablet cleared the esophagus within a timely manner without difficulty. Clinical Impressions Dysphagia Type No dysphagia observed Patient Appropriate for Therapy No Recommendations Diet Comments No diet change recommended Treatment Plan Additional Recommended Referrals Possible ENT referral re: lingual tonsil/eustation tube dysfunction...
== END ==
PROVIDERS: Family Provider Nurse Practitioner Family; PCP Family Medicine; Referring Provider Family Medicine; Visit Provider Family Medicine
DX: R12 Heartburn (principal); R13.10 Dysphagia, unspecified
CPT/HCPCS: 74230; 92611

== ENCOUNTER → 2022-12-18 15:26 | Outpatient (CLI) | payer OTHER, MEDICAID, SELFPAY ==
[2022-12-18 16:28] LABS: Cholesterol 225 mg/dL (140-199); HDL Cholesterol 94 mg/dL (40-60); LDL Cholesterol Calculated 110 mg/dL (<100); Triglycerides 106 mg/dL (35-150)
== END ==
PROVIDERS: Family Provider Nurse Practitioner Family; PCP Family Medicine; Referring Provider Family Medicine; Visit Provider Family Medicine
DX: E78.5 Hyperlipidemia, unspecified (principal)
CPT/HCPCS: 36415; 80061